=== PATIENT | male | born 1960 | race Caucasian/White ===

== ENCOUNTER 2018-09-16 09:32 | Emergency (ER) | payer MEDICAID, OTHER ==
[~2018-09-16] VITALS: Ht 177.8 cm; Wt 95.5 kg
[~2018-09-16 09:32] MED LIST: CIPR500T89 PO; METF10004 PO; METR500T10 PO; ONDA-1 PO
[2018-09-16] MEDS ORDERED: IBUPROFEN 600 MG TAB PO ONE (11:15)
[2018-09-16] MEDS ORDERED: LISI-538 PO (11:28)
[2018-09-16] MEDS ORDERED: VICT18IN SC (11:28)
[2018-09-16] MEDS ORDERED: SIMV40TA2 PO (11:28)
--- NOTE | 2018-09-16 12:24 | REP ---
SACRUM AND COCCYX: Three views of the sacrum and coccyx are performed. Irregularity of the anterior cortex of the mid coccyx could represent a nondisplaced coccygeal fracture. This could be old. No other acute fracture or dislocation is visualized. There are degenerative changes of both hip joints with moderate joint space narrowing, subchondral sclerosis and spurring. IMPRESSION: Possible nondisplaced coccygeal fracture. This could be old. Electronically Signed by Duane Penaloza MD 09/16/2018 12:52 P
[2018-09-16 14:02] VITALS: BP 158/100
== END 2018-09-16 14:07 | disposition home or self-care (01) ==
LOC: M ED 09:32
DX: S32.2XXA Fracture of coccyx, initial encounter for closed fracture (principal); W10.8XXA Fall (on) (from) other stairs and steps, initial encounter; Y92.89 Other specified places as the place of occurrence of the external cause; E11.9 Type 2 diabetes mellitus without complications; I10 Essential (primary) hypertension; Z79.899 Other long term (current) drug therapy; Z79.84 Long term (current) use of oral hypoglycemic drugs

== ENCOUNTER 2018-11-22 06:34 | Emergency (ER) | payer MEDICAID ==
[~2018-11-22] VITALS: Ht 175.3 cm; Wt 90.9 kg
[~2018-11-22 06:34] MED LIST changes: +LISI-538 PO; +SIMV40TA2 PO; +VICT18IN SC
[2018-11-22] MEDS ORDERED: IBUPROFEN 800 MG TAB PO ONE (07:00)
[2018-11-22 07:09] VITALS: BP 163/97
[2018-11-22] MEDS ORDERED: LISINOPRIL 20 MG TAB PO ONE (07:15)
[2018-11-22 08:32] VITALS: BP 161/100
--- NOTE | 2018-11-22 08:55 | REP ---
Thoracic spine three views: Comparison is a PA and lateral chest dated 05/15/2009. There is mild scoliosis convex right in the upper thoracic spine and left in the mid/lower thoracic spine. This is unchanged. Vertebral body heights and alignment are normal. Disc spaces are unremarkable. This is unchanged. Impression: Negative thoracic spine except for mild scoliosis. Electronically Signed by Duane Morris MD 11/22/2018 08:46 A
--- NOTE | 2018-11-22 08:55 | REP ---
Lumbar spine five views: There are no comparisons. Vertebral body heights and alignment are normal. Meter spacing is normal. There are anterior osteophytes indicating moderate degenerative disc disease at L2-3 and the L3-4. There are lateral osteophytes at L4-5 compatible with mild degenerative disc disease There is no spondylolysis. There is no spondylolisthesis. The pedicles and facets are unremarkable. The sacroiliac articulations are unremarkable. Mineralization is normal. Impression: There is degenerative disc disease as described Electronically Signed by Duane Morris MD 11/22/2018 08:46 A
== END 2018-11-22 08:34 | disposition home or self-care (01) ==
LOC: M ED 06:34
DX: M51.37 Other intervertebral disc degeneration, lumbosacral region (principal); M41.9 Scoliosis, unspecified; M54.5 Low back pain; E11.9 Type 2 diabetes mellitus without complications; I10 Essential (primary) hypertension; E78.5 Hyperlipidemia, unspecified; Z87.828 Personal history of other (healed) physical injury and trauma; Z87.81 Personal history of (healed) traumatic fracture; Z87.19 Personal history of other diseases of the digestive system; Z79.899 Other long term (current) drug therapy

== ENCOUNTER 2021-01-27 07:24 | Emergency (ER) | payer OTHER ==
[~2021-01-27] VITALS: Ht 177.8 cm; Wt 79.2 kg
[~2021-01-27 07:24] MED LIST changes: -LISI-538 PO; +LISI20TA33 PO; -SIMV40TA2 PO; +SIMV40TA20 PO
--- OUTSIDE RECORDS SUMMARY | 2021-01-27 07:31 | CCD ---
Author Author [facility] Address Unknown Phone Unavailable Support Name Relationship Address [place] [address] UE Next Of Kin Unknown Unavailable PROMISE COLEMAN Next Of Kin [address] [place] [address] [facility] Next Of Kin [address] [place] [address] ERICAVINCENT MAY Next Of Kin [address] [place] [address] Re-disclosure Warning The records that you are about to access may contain information from federally-assisted alcohol or drug abuse programs. If such information is present, then the following federally mandated warning applies: This information has been disclosed to you from records protected by federal confidentiality rules (42 CFR part 2). The federal rules prohibit you from making any further disclosure of this information unless further disclosure is expressly permitted by the written consent of the person to whom it pertains or as otherwise permitted by 42 CFR part 2. A general authorization for the release of medical or other information is NOT sufficient for this purpose. The Federal rules restrict any use of the information to criminally investigate or prosecute any alcohol or drug abuse patient.The records that you are about to access may contain highly sensitive health information, the redisclosure of which is protected by Article 27-F of the [facility] [place] Public Health law. If you continue you may have access to information: Regarding HIV / AIDS; Provided by facilities licensed or operated by the [facility] [place] Office of Mental Health; or Provided by the [facility] [place] Office for People With Developmental Disabilities. If such information is present, then the following [facility] [place] mandated warning applies: This information has been disclosed to you from confidential records which are protected by state law. State law prohibits you from making any further disclosure of this information without the specific written consent of the person to whom it pertains, or as otherwise permitted by law. Any unauthorized further disclosure in violation of state law may result in a fine or group home sentence or both. A general authorization for the release of medical or other information is NOT sufficient authorization for further disc losure. Family History Family Member Name Family Member Gender Family Member Status Date o f Status Description Data Source(s) Unknown Male Problem [facility] ([facility]) Immunizations Vaccine Date Status Description Data Source(s) COVID-19 VACCINE Jong 06/29/2020 12:00:00 AM EDT completed [facility] Vaccine Series Complete: YESThis Data wa s Submitted to [facility] Via [facility]. Medications No Information Insurance Providers Payer name Policy type / Coverage type Policy ID Covered green party ID Covered green party's relationship to mercado Policy [employer] Plan Information [facility] [id number] SP [id number] [facility] [place] [id number] [id number] 18 [id number] [facility] [id number] S [id number] MEDICAID M [id number] S [id number] MEDICAID [id number] SP [id number] [facility] COMM[facility] [place] [id number] SP [id number] [facility] [place] [id number] SP [id number] Medicaid Commercial [id number] Self [id number] SELF PAY UNAVAILABLE UNAVAILA BLE [employer] P [id number] [employer] P [id number] S [id number] [employer] 306/806 [id number] SP [id number] SELF PAY [id number] SP [id number] [place] PPO 302/307 [id number] SP [id number] [facility] COMM[facility] [id number] SP [id number] Problems, Conditions, and Diagnoses No Information Surgeries/Procedures No Information Results No Information Social History No Information
[2021-01-27] MEDS ORDERED: METF-839 PO (07:33)
[2021-01-27 10:32] VITALS: BP 163/80
== END 2021-01-27 10:43 | disposition home or self-care (01) ==
LOC: M ED 07:24
DX: U07.1 COVID-19 (principal); E11.9 Type 2 diabetes mellitus without complications; I10 Essential (primary) hypertension; Z79.899 Other long term (current) drug therapy

== ENCOUNTER 2022-02-01 08:26 | Emergency (ER) | payer OTHER, SELFPAY ==
[~2022-02-01] VITALS: Ht 177.8 cm; Wt 98.2 kg
[~2022-02-01 08:26] MED LIST changes: +METF-839 PO
[2022-02-01] MEDS ORDERED: NITROGLYCERIN 0.4 MG SUBL TABLET SL PRN (09:05)
[2022-02-01] MEDS ORDERED: ASPIRIN 81 MG CHEW TABLET PO ONE (09:05)
[2022-02-01] MEDS ORDERED: MORPHINE 4 MG/ML 1ML VIAL/SYRINGE IV PRN (09:15)
[2022-02-01] MEDS ORDERED: NITROGLYCERIN 2% OINT 1 GM *U/D* PKT TOP ONE (09:15)
[2022-02-01 09:51] LABS: BASO % 0.2 % (0.0-1.0); EOS % 0.1 % (0.0-3.0); HEMATOCRIT 44.1 % (42.0-52.0); HEMOGLOBIN 14.8 g/dl (13.5-17.5); LYMPH # 0.9 10^3/uL (1.5-5.0); LYMPH % 5.2 % (24.0-44.0); MEAN CORPUSCULAR HEMOGLOBIN 30.5 pg (27.0-33.0); MEAN CORPUSCULAR HGB CONC 33.6 g/dl (32.0-36.5); MEAN CORPUSCULAR VOLUME 90.7 fl (80.0-96.0); MONO # 0.4 10^3/uL (0.0-0.8); MONO % 2.6 % (2.0-8.0); NEUTROPHILS % 91.3 % (36.0-66.0); PLATELET COUNT, AUTOMATED 266 10^3/uL (150-450); RED BLOOD COUNT 4.86 10^6/uL (4.30-6.10); WHITE BLOOD COUNT 16.5 10^3/uL (4.0-10.0)
[2022-02-01 10:03] LABS: INR 1.18; PROTHROMBIN TIME 15.3 SECONDS (12.5-14.5)
[2022-02-01 10:04] LABS: PARTIAL THROMBOPLASTIN TIME 23.7 SECONDS (24.8-34.2)
[2022-02-01 10:05] VITALS: BP 152/86
[2022-02-01] MEDS ORDERED: METOPROLOL TART 50 MG TAB PO ONE (10:05)
[2022-02-01 10:30] LABS: CALCIUM LEVEL 9.5 MG/DL (8.8-10.2); CREATININE FOR GFR 1.31 MG/DL (0.70-1.30); GLOMERULAR FILTRATION RATE 59.4 (>49); POTASSIUM SERUM 3.7 MEQ/L (3.5-5.1)
[2022-02-01 10:50] LABS: CK-MB VALUE MASS 1.5 NG/ML (<3.6); MB/CK RELATIVE INDEX 2.14 (< OR =4)
[2022-02-01] MEDS ORDERED: CLOPIDOGREL 300 MG TAB (PLAVIX) PO ONE (10:50)
[2022-02-01] MEDS ORDERED: HEPARIN DRIP 25,000 UNITS in IV 1 EA IV SCH (10:50)
[2022-02-01] MEDS ORDERED: HEPARIN SOD (PORCINE) 5000UNITS/ML 1ML VIAL/SYRINGE IV ONE (10:50)
[2022-02-01 11:20] LABS: CK-MB VALUE MASS 1.6 NG/ML (<3.6)
[2022-02-01 13:08] VITALS: BP 165/90
[2022-02-01 14:10] LABS: CK-MB VALUE MASS 1.1 NG/ML (<3.6); MB/CK RELATIVE INDEX 2.04 (< OR =4)
== END 2022-02-01 14:29 | disposition home or self-care (01) ==
LOC: M ED 08:26
DX: I21.4 Non-ST elevation (NSTEMI) myocardial infarction (principal); I20.0 Unstable angina; I20.9 Angina pectoris, unspecified; G23.8 Other specified degenerative diseases of basal ganglia; E11.9 Type 2 diabetes mellitus without complications; I10 Essential (primary) hypertension; E78.5 Hyperlipidemia, unspecified; Z86.16 Personal history of COVID-19; Z82.49 Family history of ischemic heart disease and other diseases of the circulatory system; Z79.899 Other long term (current) drug therapy
CPT/HCPCS: 36415; 70450; 71045; 80048; 82550; 82553; 83880; 85025; 85610; 85730; 87486; 87581; 87633; 87798; 93005; 93041; 94760; 96365; 96366; 99285; J1644; J2270

== ENCOUNTER 2022-02-26 20:55 | Emergency (ER) | payer OTHER ==
[~2022-02-26] VITALS: Ht 177.8 cm; Wt 77.3 kg
[2022-02-26] MEDS ORDERED: lisinopriL 40MG TAB PO ONE (21:15)
[2022-02-26 22:17] LABS: BASO # 0.1 10^3/uL (0.0-0.2); BASO % 0.7 % (0.0-1.0); EOS # 0.6 10^3/uL (0.0-0.5); EOS % 4.6 % (0.0-3.0); HEMATOCRIT 42.6 % (42.0-52.0); HEMOGLOBIN 13.7 g/dl (13.5-17.5); LYMPH # 2.6 10^3/uL (1.5-5.0); LYMPH % 20.8 % (24.0-44.0); MEAN CORPUSCULAR HEMOGLOBIN 29.9 pg (27.0-33.0); MEAN CORPUSCULAR HGB CONC 32.2 g/dl (32.0-36.5); MONO # 0.8 10^3/uL (0.0-0.8); MONO % 6.5 % (2.0-8.0); NEUTROPHILS # 8.2 10^3/uL (1.5-8.5); NEUTROPHILS % 66.6 % (36.0-66.0); PLATELET COUNT, AUTOMATED 366 10^3/uL (150-450); RED BLOOD COUNT 4.58 10^6/uL (4.30-6.10); WHITE BLOOD COUNT 12.3 10^3/uL (4.0-10.0)
[2022-02-26 22:28] LABS: INR 1.14; PROTHROMBIN TIME 14.8 SECONDS (12.5-14.5)
[2022-02-26 22:29] LABS: PARTIAL THROMBOPLASTIN TIME 30.2 SECONDS (24.8-34.2)
[2022-02-26 22:39] LABS: BILIRUBIN,DIRECT 0.1 MG/DL (<0.4)
[2022-02-26 22:42] LABS: FREE T4 1.02 NG/DL (0.89-1.76); THYROID STIMULATING HORMONE 4.335 uIU/ML (0.55-4.78)
[2022-02-26 22:46] LABS: ALBUMIN 3.7 G/DL (3.2-5.2); ALKALINE PHOSPHATASE 93 U/L (46-116); ALT/SGPT 41 U/L (7.0-40); AST/SGOT 39 U/L (<34); BILIRUBIN,TOTAL 0.3 MG/DL (0.3-1.2); BLOOD UREA NITROGEN 14 MG/DL (9-23); CALCIUM LEVEL 9.2 MG/DL (8.3-10.6); CARBON DIOXIDE LEVEL 28 MMOL/L (20-31); CHLORIDE LEVEL 101 MMOL/L (98-107); CPK CREATINE PHOSPHOKINASE 93 U/L (46-171); CREATININE FOR GFR 0.78 MG/DL (0.70-1.30); GLOMERULAR FILTRATION RATE > 60.0 (>49); GLUCOSE, FASTING 104 MG/DL (74-106); MB/CK RELATIVE INDEX 1.07 (< OR =4); POTASSIUM SERUM 5.4 MMOL/L (3.5-5.1); SODIUM LEVEL 137 MMOL/L (136-145)
[2022-02-26 22:48] LABS: RSV AMPLIFICATION NEGATIVE (NEGATIVE)
[2022-02-26 23:59] LABS: POTASSIUM SERUM 4.4 MMOL/L (3.5-5.1)
[2022-02-27 00:06] LABS: CK-MB VALUE MASS < 1.0 NG/ML (<3.6)
[2022-02-27 00:07] LABS: CPK CREATINE PHOSPHOKINASE 63 U/L (46-171); MB/CK RELATIVE INDEX 1.58 (< OR =4)
[2022-02-27 01:32] LABS: MB/CK RELATIVE INDEX 1.44 (< OR =4)
[2022-02-27 01:45] VITALS: BP 162/92
== END 2022-02-27 02:45 | disposition home or self-care (01) ==
LOC: M ED 20:55
DX: R61 Generalized hyperhidrosis (principal); E11.9 Type 2 diabetes mellitus without complications; I10 Essential (primary) hypertension; I25.2 Old myocardial infarction; Z86.73 Personal history of transient ischemic attack (TIA), and cerebral infarction without residual deficits; Z82.49 Family history of ischemic heart disease and other diseases of the circulatory system; Z79.899 Other long term (current) drug therapy

== ENCOUNTER → 2022-04-08 | Outpatient (REF) | payer OTHER ==
[2022-04-08 16:54] LABS: CREATININE, URINE 43.4 MG/DL; MAU/CREAT RATIO 13.8 MCG/MG (0.0-30.0)
== END ==
LOC: M LAB REF 16:34
PROVIDERS: ATTEND Physician Assistant
DX: E11.65 Type 2 diabetes mellitus with hyperglycemia (principal)

== ENCOUNTER 2022-06-15 10:35 | Emergency (ER) | payer OTHER ==
[~2022-06-15] VITALS: Ht 177.8 cm; Wt 82.6 kg
[2022-06-15 11:43] LABS: BASO # 0.1 10^3/uL (0.0-0.2); BASO % 0.8 % (0.0-1.0); EOS # 0.4 10^3/uL (0.0-0.5); EOS % 4.6 % (0.0-3.0); HEMATOCRIT 40.4 % (42.0-52.0); HEMOGLOBIN 13.2 g/dl (13.5-17.5); LYMPH # 1.6 10^3/uL (1.5-5.0); LYMPH % 21.7 % (24.0-44.0); MEAN CORPUSCULAR HEMOGLOBIN 31.1 pg (27.0-33.0); MEAN CORPUSCULAR HGB CONC 32.7 g/dl (32.0-36.5); MEAN CORPUSCULAR VOLUME 95.1 fl (80.0-96.0); MONO # 0.5 10^3/uL (0.0-0.8); MONO % 7.1 % (2.0-8.0); NEUTROPHILS # 4.9 10^3/uL (1.5-8.5); NEUTROPHILS % 65.1 % (36.0-66.0); PLATELET COUNT, AUTOMATED 263 10^3/uL (150-450); RED BLOOD COUNT 4.25 10^6/uL (4.30-6.10); WHITE BLOOD COUNT 7.6 10^3/uL (4.0-10.0)
[2022-06-15 12:12] LABS: BLOOD UREA NITROGEN 27 MG/DL (9-23); CALCIUM LEVEL 8.2 MG/DL (8.3-10.6); CARBON DIOXIDE LEVEL 26 MMOL/L (20-31); CHLORIDE LEVEL 100 MMOL/L (98-107); GLOMERULAR FILTRATION RATE > 60.0 (>49); GLUCOSE, FASTING 272 MG/DL (74-106); POTASSIUM SERUM 4.2 MMOL/L (3.5-5.1); SODIUM LEVEL 132 MMOL/L (136-145)
[2022-06-15 13:06] VITALS: BP 151/83
== END 2022-06-15 13:10 | disposition home or self-care (01) ==
LOC: M ED 10:35 → EDBD 10:35 → M ED 13:10
DX: E16.2 Hypoglycemia, unspecified (principal); I11.9 Hypertensive heart disease without heart failure; I25.2 Old myocardial infarction; E10.9 Type 1 diabetes mellitus without complications; Z86.73 Personal history of transient ischemic attack (TIA), and cerebral infarction without residual deficits

== ENCOUNTER → 2022-06-22 | Outpatient (REF) | payer OTHER ==
[2022-06-22 17:04] LABS: HEMATOCRIT 44.8 % (42.0-52.0); HEMOGLOBIN 14.4 g/dl (13.5-17.5); MEAN CORPUSCULAR HEMOGLOBIN 30.7 pg (27.0-33.0); MEAN CORPUSCULAR HGB CONC 32.1 g/dl (32.0-36.5); MEAN CORPUSCULAR VOLUME 95.5 fl (80.0-96.0); PLATELET COUNT, AUTOMATED 292 10^3/uL (150-450); RED BLOOD COUNT 4.69 10^6/uL (4.30-6.10); WHITE BLOOD COUNT 6.5 10^3/uL (4.0-10.0)
[2022-06-22 17:06] LABS: ALBUMIN 4.2 G/DL (3.2-5.2); ALKALINE PHOSPHATASE 69 U/L (46-116); ALT/SGPT 32 U/L (7.0-40); AST/SGOT 25 U/L (<34); BILIRUBIN,TOTAL 0.4 MG/DL (0.3-1.2); BLOOD UREA NITROGEN 18 MG/DL (9-23); CALCIUM LEVEL 9.6 MG/DL (8.3-10.6); CARBON DIOXIDE LEVEL 29 MMOL/L (20-31); CHLORIDE LEVEL 103 MMOL/L (98-107); CHOLESTEROL LEVEL 140 MG/DL (<200); CHOLESTEROL RISK RATIO 3.32 (<5); CREATININE FOR GFR 1.06 MG/DL (0.70-1.30); GLOMERULAR FILTRATION RATE > 60.0 (>49); GLUCOSE, FASTING 146 MG/DL (74-106); HDL CHOLESTEROL 42.1 MG/DL (>40); LDL CHOLESTEROL 81.1 MG/DL (<100); NON-HDL-C 97.9 MG/DL; POTASSIUM SERUM 4.9 MMOL/L (3.5-5.1); SODIUM LEVEL 139 MMOL/L (136-145); TOTAL PROTEIN 7.3 G/DL (5.7-8.2); TRIGLYCERIDES LEVEL 84 MG/DL (<150)
[2022-06-22 17:40] LABS: HEMOGLOBIN A1c 6.9 % (4.0-6.0)
== END ==
LOC: M LAB REF 16:28
PROVIDERS: ATTEND Physician Assistant
DX: E11.65 Type 2 diabetes mellitus with hyperglycemia (principal)

== ENCOUNTER 2022-09-17 20:19 | Inpatient (IN) | payer OTHER ==
[~2022-09-17] VITALS: Ht 177.8 cm; Wt 77.1 kg
[2022-09-17] MEDS ORDERED: ISOVUE-370 76% 100ML VIAL As Ordered ONE (20:48)
[2022-09-17 21:14] LABS: BASO # 0.1 10^3/uL (0.0-0.2); BASO % 0.2 % (0.0-1.0); EOS # 0.1 10^3/uL (0.0-0.5); EOS % 0.5 % (0.0-3.0); HEMATOCRIT 40.2 % (42.0-52.0); HEMOGLOBIN 13.4 g/dl (13.5-17.5); LYMPH # 1.2 10^3/uL (1.5-5.0); LYMPH % 4.4 % (24.0-44.0); MEAN CORPUSCULAR HEMOGLOBIN 30.4 pg (27.0-33.0); MEAN CORPUSCULAR HGB CONC 33.3 g/dl (32.0-36.5); MEAN CORPUSCULAR VOLUME 91.2 fl (80.0-96.0); MONO % 8.6 % (2.0-8.0); NEUTROPHILS # 22.7 10^3/uL (1.5-8.5); NEUTROPHILS % 84.8 % (36.0-66.0); PLATELET COUNT, AUTOMATED 224 10^3/uL (150-450); RED BLOOD COUNT 4.41 10^6/uL (4.30-6.10); WHITE BLOOD COUNT 26.8 10^3/uL (4.0-10.0)
[2022-09-17 21:30] LABS: MONO # 2.3 10^3/uL (0.0-0.8)
[2022-09-17 21:43] LABS: LIPASE 22 U/L (12-53)
[2022-09-17 21:45] LABS: ALBUMIN 3.1 G/DL (3.2-5.2); ALKALINE PHOSPHATASE 88 U/L (46-116); ALT/SGPT 15 U/L (7.0-40); AST/SGOT < 8 U/L (<34); BILIRUBIN,DIRECT 0.4 MG/DL (<0.4); BILIRUBIN,TOTAL 0.9 MG/DL (0.3-1.2); BLOOD UREA NITROGEN 44 MG/DL (9-23); CALCIUM LEVEL 9.5 MG/DL (8.3-10.6); CARBON DIOXIDE LEVEL 25 MMOL/L (20-31); CHLORIDE LEVEL 101 MMOL/L (98-107); CREATININE FOR GFR 1.79 MG/DL (0.70-1.30); GLOMERULAR FILTRATION RATE 41.4 (>49); GLUCOSE, FASTING 221 MG/DL (74-106); SODIUM LEVEL 135 MMOL/L (136-145); TOTAL PROTEIN 6.3 G/DL (5.7-8.2)
[2022-09-17] MEDS ORDERED: NS 1,000 ML IV SCH (21:55)
[2022-09-17] MEDS ORDERED: cefTRIAXone SOD 2 GM in D5W MINI-BAG PLUS 50 ML IV ONE (23:35)
[2022-09-18] MEDS ORDERED: ACETAMINOPHEN TAB 650MG DOSE (2X325MG) PO PRN (01:00)
[2022-09-18 01:24] VITALS: BP 133/84; TEMP 97.9; O2SAT 97
[2022-09-18] MEDS: NS 1,000 ML IV SCH ×3 (01:31→23:03)
[2022-09-18] MEDS ORDERED: AMLO1TAB25 PO (02:17)
[2022-09-18] MEDS ORDERED: CLOP75TA2 PO (02:17)
[2022-09-18] MEDS ORDERED: LISI40TA4 PO (02:17)
[2022-09-18] MEDS ORDERED: METF-838 PO (02:17)
[2022-09-18] MEDS ORDERED: ASPI-161 PO (02:17)
[2022-09-18] MEDS ORDERED: CARV6.25 PO ×2 (02:17)
[2022-09-18] MEDS ORDERED: JARD1TAB PO (02:17)
[2022-09-18] MEDS ORDERED: ATOR80TA59 PO (02:19)
[2022-09-18] MEDS ORDERED: HOME MED LIST COMPLETE! XX SCH (02:20)
[2022-09-18] MEDS ORDERED: GLUCAGON INJ 1MG VIAL SC PRN (02:25)
[2022-09-18] MEDS ORDERED: NS 1,000 ML IV ONE (02:25)
[2022-09-18] MEDS ORDERED: DEXTROSE 50% 50ML SYRINGE IV PRN (02:25)
[2022-09-18] MEDS ORDERED: GLUCOSE 4GM CHEW TABLET PO PRN (02:25)
[2022-09-18 05:10] VITALS: BP 132/80; TEMP 97.5; O2SAT 97
[2022-09-18] MEDS: HEPARIN SOD (PORCINE) 5000UNITS/ML 1ML VIAL/SYRINGE SC SCH ×3 (05:39→21:26)
[2022-09-18 05:55] LABS: CALCIUM LEVEL 7.8 MG/DL (8.3-10.6); CREATININE FOR GFR 1.53 MG/DL (0.70-1.30); GLOMERULAR FILTRATION RATE 49.7 (>49); MAGNESIUM LEVEL 2.1 MG/DL (1.8-2.4); POTASSIUM SERUM 4.1 MMOL/L (3.5-5.1)
[2022-09-18] MEDS: ASPIRIN 81MG ENTERIC TABLET PO SCH (08:47)
[2022-09-18] MEDS: INSULIN LISPRO (NovoLOG) PER UNIT SC SCH ×4 (08:47→21:00)
[2022-09-18] MEDS: ATORVASTATIN 20 MG TAB PO SCH (08:47)
[2022-09-18] MEDS: CLOPIDOGREL 75 MG TAB PO SCH (08:47)
[2022-09-18 10:31] LABS: BASO % 0.2 % (0.0-1.0); EOS # 0.1 10^3/uL (0.0-0.5); EOS % 0.3 % (0.0-3.0); HEMATOCRIT 39.8 % (42.0-52.0); LYMPH # 1.5 10^3/uL (1.5-5.0); LYMPH % 6.6 % (24.0-44.0); MEAN CORPUSCULAR HEMOGLOBIN 30.7 pg (27.0-33.0); MEAN CORPUSCULAR HGB CONC 32.7 g/dl (32.0-36.5); MEAN CORPUSCULAR VOLUME 94.1 fl (80.0-96.0); MONO # 1.3 10^3/uL (0.0-0.8); MONO % 5.7 % (2.0-8.0); NEUTROPHILS # 19.4 10^3/uL (1.5-8.5); NEUTROPHILS % 85.7 % (36.0-66.0); PLATELET COUNT, AUTOMATED 215 10^3/uL (150-450); RED BLOOD COUNT 4.23 10^6/uL (4.30-6.10); WHITE BLOOD COUNT 22.6 10^3/uL (4.0-10.0)
[2022-09-18 14:00] VITALS: BP 128/68; TEMP 97.5; O2SAT 98
[2022-09-18] MEDS ORDERED: LOPERAMIDE 2 MG CAPLET PO PRN (19:05)
[2022-09-18 20:07] VITALS: BP 156/86; TEMP 98.2; O2SAT 97
[2022-09-18] MEDS: cefTRIAXone SOD 1 GM in D5W MINI-BAG PLUS 50 ML IV SCH (21:26)
[2022-09-18 22:00] VITALS: BP 134/82
[2022-09-19 04:00] VITALS: BP 133/81
[2022-09-19 05:40] VITALS: BP 139/80; TEMP 98.1; O2SAT 96
[2022-09-19 06:00] VITALS: BP 193/80
[2022-09-19] MEDS: HEPARIN SOD (PORCINE) 5000UNITS/ML 1ML VIAL/SYRINGE SC SCH ×3 (06:13→22:10)
[2022-09-19 06:42] LABS: HEMATOCRIT 34.8 % (42.0-52.0); HEMOGLOBIN 11.5 g/dl (13.5-17.5); MEAN CORPUSCULAR HEMOGLOBIN 30.3 pg (27.0-33.0); MEAN CORPUSCULAR VOLUME 91.8 fl (80.0-96.0); PLATELET COUNT, AUTOMATED 211 10^3/uL (150-450); RED BLOOD COUNT 3.79 10^6/uL (4.30-6.10)
[2022-09-19 07:12] LABS: BLOOD UREA NITROGEN 31 MG/DL (9-23); CALCIUM LEVEL 8.1 MG/DL (8.3-10.6); CARBON DIOXIDE LEVEL 21 MMOL/L (20-31); CHLORIDE LEVEL 107 MMOL/L (98-107); CREATININE FOR GFR 1.01 MG/DL (0.70-1.30); GLOMERULAR FILTRATION RATE > 60.0 (>49); GLUCOSE, FASTING 141 MG/DL (74-106); POTASSIUM SERUM 3.9 MMOL/L (3.5-5.1); SODIUM LEVEL 135 MMOL/L (136-145)
[2022-09-19] MEDS: CLOPIDOGREL 75 MG TAB PO SCH (09:52)
[2022-09-19] MEDS: INSULIN LISPRO (NovoLOG) PER UNIT SC SCH ×4 (09:52→20:14)
[2022-09-19] MEDS: NS 1,000 ML IV SCH ×2 (09:52→19:59)
[2022-09-19] MEDS: ATORVASTATIN 20 MG TAB PO SCH (09:53)
[2022-09-19] MEDS: ASPIRIN 81MG ENTERIC TABLET PO SCH (09:53)
[2022-09-19 14:00] VITALS: BP 141/79; TEMP 98.2; O2SAT 98
[2022-09-19] MEDS ORDERED: CARVedilol 3.125 MG TAB PO SCH (21:00)
[2022-09-19 22:00] VITALS: BP 159/83; TEMP 98.8; O2SAT 97
[2022-09-19] MEDS: cefTRIAXone SOD 1 GM in D5W MINI-BAG PLUS 50 ML IV SCH (22:15)
[2022-09-20] MEDS: HEPARIN SOD (PORCINE) 5000UNITS/ML 1ML VIAL/SYRINGE SC SCH (05:13)
[2022-09-20 05:39] VITALS: BP 133/70; TEMP 97.9; O2SAT 97
[2022-09-20 06:00] LABS: HEMOGLOBIN 10.9 g/dl (13.5-17.5); MEAN CORPUSCULAR HEMOGLOBIN 30.5 pg (27.0-33.0); MEAN CORPUSCULAR VOLUME 92.4 fl (80.0-96.0); PLATELET COUNT, AUTOMATED 219 10^3/uL (150-450); RED BLOOD COUNT 3.57 10^6/uL (4.30-6.10); WHITE BLOOD COUNT 10.8 10^3/uL (4.0-10.0)
[2022-09-20 06:29] LABS: BLOOD UREA NITROGEN 20 MG/DL (9-23); CALCIUM LEVEL 7.3 MG/DL (8.3-10.6); CARBON DIOXIDE LEVEL 23 MMOL/L (20-31); CHLORIDE LEVEL 107 MMOL/L (98-107); CREATININE FOR GFR 0.94 MG/DL (0.70-1.30); GLOMERULAR FILTRATION RATE > 60.0 (>49); GLUCOSE, FASTING 192 MG/DL (74-106); POTASSIUM SERUM 3.9 MMOL/L (3.5-5.1); SODIUM LEVEL 137 MMOL/L (136-145)
[2022-09-20] MEDS ORDERED: LEVO1TAB40 PO (07:25)
[2022-09-20] MEDS ORDERED: PROBCAP14 PO (07:25)
[2022-09-20] MEDS ORDERED: FLOM0.4C39 PO (07:29)
[2022-09-20 08:42] VITALS: BP 147/73
[2022-09-20] MEDS: INSULIN LISPRO (NovoLOG) PER UNIT SC SCH (08:42)
[2022-09-20] MEDS: ATORVASTATIN 20 MG TAB PO SCH (08:42)
[2022-09-20] MEDS: ASPIRIN 81MG ENTERIC TABLET PO SCH (08:43)
[2022-09-20] MEDS: CLOPIDOGREL 75 MG TAB PO SCH (08:43)
== END 2022-09-20 09:29 | disposition home or self-care (01) | DRG 720 ==
LOC: M ED 20:19 → M ED INP 09-18 00:26 → ENRESERV 09-18 01:03 → M MSPAV 09-18 01:22
PROVIDERS: ADMIT Internal Medicine; ATTEND Internal Medicine
DX: A41.9 Sepsis, unspecified organism (principal); R65.20 Severe sepsis without septic shock; N39.0 Urinary tract infection, site not specified; N17.9 Acute kidney failure, unspecified; I25.10 Atherosclerotic heart disease of native coronary artery without angina pectoris; E11.9 Type 2 diabetes mellitus without complications; R80.9 Proteinuria, unspecified; I10 Essential (primary) hypertension; I25.2 Old myocardial infarction; Z86.73 Personal history of transient ischemic attack (TIA), and cerebral infarction without residual deficits; Z95.5 Presence of coronary angioplasty implant and graft; B96.20 Unspecified Escherichia coli [E. coli] as the cause of diseases classified elsewhere; N40.0 Benign prostatic hyperplasia without lower urinary tract symptoms; Z79.82 Long term (current) use of aspirin; Z79.02 Long term (current) use of antithrombotics/antiplatelets; Z79.84 Long term (current) use of oral hypoglycemic drugs; Z79.899 Other long term (current) drug therapy; Z90.49 Acquired absence of other specified parts of digestive tract

== ENCOUNTER → 2022-10-09 | Outpatient (REF) | payer OTHER, MEDICAID ==
[~2022-10-09] MED LIST changes: +AMLO1TAB25 PO; +ASPI-161 PO; +ATOR80TA59 PO; +CARV6.25 PO; +CLOP75TA2 PO; +FLOM0.4C39 PO; +JARD1TAB PO; +LEVO1TAB40 PO; +LISI40TA4 PO; +METF-838 PO; +PROBCAP14 PO
[2022-10-09 14:51] LABS: APPEARANCE, URINE CLEAR (CLEAR); BACTERIA, URINE AUTO NEGATIVE (NEGATIVE); BILIRUBIN, URINE AUTO NEGATIVE (NEGATIVE); BLOOD, URINE BLOOD NEGATIVE (NEGATIVE); COLOR, URINE YELLOW (YELLOW); GLUCOSE, URINE (UA) AUTO 3+ mg/dL (NEGATIVE); KETONE, URINE AUTO NEGATIVE (NEGATIVE); LEUKOCYTE ESTERASE, URINE AUTO TRACE (NEGATIVE); NITRITE, URINE AUTO NEGATIVE (NEGATIVE); PROTEIN, URINE AUTO NEGATIVE (NEGATIVE); RBC, URINE AUTO 1 /HPF (0-3); SPECIFIC GRAVITY URINE AUTO 1.018 (1.002-1.035); SQUAMOUS EPITHELIAL CELL UR AU 0 /HPF (0-6); UROBILINOGEN, URINE AUTO 0.2 mg/dL (0.0-2.0); WBC, URINE AUTO 11 /HPF (0-3)
== END ==
LOC: M SMT 14:23
PROVIDERS: ATTEND Urology
DX: R39.14 Feeling of incomplete bladder emptying (principal)

== ENCOUNTER → 2022-11-05 | Outpatient (REF) | payer OTHER, MEDICAID ==
[2022-11-05 17:32] LABS: BLOOD UREA NITROGEN 19 MG/DL (9-23); CALCIUM LEVEL 9.6 MG/DL (8.3-10.6); CARBON DIOXIDE LEVEL 28 MMOL/L (20-31); CHLORIDE LEVEL 103 MMOL/L (98-107); CREATININE FOR GFR 1.21 MG/DL (0.70-1.30); GLOMERULAR FILTRATION RATE > 60.0 (>49); GLUCOSE, FASTING 176 MG/DL (74-106); POTASSIUM SERUM 4.6 MMOL/L (3.5-5.1); SODIUM LEVEL 139 MMOL/L (136-145)
[2022-11-05 18:04] LABS: HIV 1&2 SCREEN NEGATIVE (NEGATIVE)
[2022-11-05 18:12] LABS: HEPATITIS C VIRUS ABY INDEX 0.16 INDEX (<0.8)
== END ==
LOC: M LAB REF 16:43
PROVIDERS: ATTEND Physician Assistant
DX: Z11.59 Encounter for screening for other viral diseases (principal); Z11.4 Encounter for screening for human immunodeficiency virus [HIV]; I10 Essential (primary) hypertension

== ENCOUNTER → 2023-01-29 | Outpatient (REF) | payer MEDICAID ==
[2023-01-29 14:06] LABS: APPEARANCE, URINE CLEAR (CLEAR); BACTERIA, URINE AUTO NEGATIVE (NEGATIVE); BILIRUBIN, URINE AUTO NEGATIVE (NEGATIVE); BLOOD, URINE BLOOD NEGATIVE (NEGATIVE); COLOR, URINE STRAW (YELLOW); GLUCOSE, URINE (UA) AUTO 3+ mg/dL (NEGATIVE); KETONE, URINE AUTO NEGATIVE (NEGATIVE); LEUKOCYTE ESTERASE, URINE AUTO NEGATIVE (NEGATIVE); NITRITE, URINE AUTO NEGATIVE (NEGATIVE); PROTEIN, URINE AUTO NEGATIVE (NEGATIVE); RBC, URINE AUTO 0 /HPF (0-3); SPECIFIC GRAVITY URINE AUTO 1.012 (1.002-1.035); SQUAMOUS EPITHELIAL CELL UR AU 0 /HPF (0-6); UROBILINOGEN, URINE AUTO 0.2 mg/dL (0.0-2.0); WBC, URINE AUTO 0 /HPF (0-3)
== END ==
LOC: M LABSMT 08:59
PROVIDERS: ATTEND Urology
DX: N40.2 Nodular prostate without lower urinary tract symptoms (principal)

== ENCOUNTER → 2023-06-10 | Outpatient (REF) ==
[~2023-06-10] MED LIST changes: -ASPI-161 PO; +ASPI-615 PO
== END ==
LOC: M PLAIMG 08:49
PROVIDERS: ATTEND Internal Medicine
DX: R52 Pain, unspecified (principal)

== ENCOUNTER → 2023-10-14 | Outpatient (REF) | payer MEDICAID, OTHER ==
[2023-10-14 17:39] LABS: HEMATOCRIT 44.4 % (42.0-52.0); HEMOGLOBIN 15.1 g/dl (13.5-17.5); MEAN CORPUSCULAR HEMOGLOBIN 31.8 pg (27.0-33.0); MEAN CORPUSCULAR VOLUME 93.5 fl (80.0-96.0); PLATELET COUNT, AUTOMATED 262 10^3/uL (150-450); RED BLOOD COUNT 4.75 10^6/uL (4.30-6.10); WHITE BLOOD COUNT 7.4 10^3/uL (4.0-10.0)
[2023-10-14 17:53] LABS: CREATININE, URINE 32.4 MG/DL
[2023-10-14 17:54] LABS: MAU/CREAT RATIO 80.2 MCG/MG (0.0-30.0)
[2023-10-14 19:46] LABS: ALBUMIN 3.8 G/DL (3.2-5.2); ALKALINE PHOSPHATASE 86 U/L (46-116); ALT/SGPT 24 U/L (7.0-40); AST/SGOT 11 U/L (<34); BILIRUBIN,TOTAL 0.6 MG/DL (0.3-1.2); BLOOD UREA NITROGEN 27 MG/DL (9-23); CALCIUM LEVEL 9.2 MG/DL (8.3-10.6); CARBON DIOXIDE LEVEL 26 MMOL/L (20-31); CHLORIDE LEVEL 98 MMOL/L (98-107); CHOLESTEROL LEVEL 230 MG/DL (<200); CHOLESTEROL RISK RATIO 5.65 (<5); CREATININE FOR GFR 0.89 MG/DL (0.70-1.30); GLOMERULAR FILTRATION RATE > 60.0 (>49); GLUCOSE, FASTING 420 MG/DL (74-106); HDL CHOLESTEROL 40.7 MG/DL (>40); LDL CHOLESTEROL 156.3 MG/DL (<100); NON-HDL-C 189.3 MG/DL; POTASSIUM SERUM 4.3 MMOL/L (3.5-5.1); SODIUM LEVEL 131 MMOL/L (136-145); TRIGLYCERIDES LEVEL 165 MG/DL (<150)
== END ==
LOC: M LAB REF 16:08
PROVIDERS: ATTEND Physician Assistant
DX: E11.65 Type 2 diabetes mellitus with hyperglycemia (principal)

== ENCOUNTER 2025-03-13 06:24 | Emergency (ER) | payer OTHER ==
[~2025-03-13] VITALS: Ht 177.8 cm; Wt 81.2 kg
[~2025-03-13 06:24] MED LIST changes: -FLOM0.4C39 PO; +LISI40TA10 PO; -LISI40TA4 PO; +TAMS-18 PO
[2025-03-13] MEDS: ACETAMINOPHEN 500 MG TAB PO ONE (09:23)
[2025-03-13] MEDS: amLODIPine 10 MG TAB PO ONE (09:39)
[2025-03-13 10:25] VITALS: BP 153/74; TEMP 97.1; O2SAT 97
== END 2025-03-13 10:50 | disposition home or self-care (01) ==
LOC: M ED 06:24 → EDBD 06:24 → M ED 10:50
DX: M79.651 Pain in right thigh (principal); I25.119 Atherosclerotic heart disease of native coronary artery with unspecified angina pectoris; E11.9 Type 2 diabetes mellitus without complications; I10 Essential (primary) hypertension; Z86.73 Personal history of transient ischemic attack (TIA), and cerebral infarction without residual deficits; Z79.1 Long term (current) use of non-steroidal anti-inflammatories (NSAID); Z79.84 Long term (current) use of oral hypoglycemic drugs; Z79.899 Other long term (current) drug therapy